=== PATIENT | female | born 1955 | race Hispanic/Latino ===

== ENCOUNTER → 2018-06-12 | Outpatient (CLI) | payer OTHER ==
--- NOTE | 2018-06-12 12:45 | Diagnostic Imaging Report ---
EXAM: US ABDOMEN COMPLETE DATE: 06/12/2018 7:40 AM INDICATION: Area of palpable concern in RLQ COMPARISON: None TECHNIQUE: Transverse and longitudinal blanco scale and color doppler sonographic images of the upper abdomen were obtained. FINDINGS: There is no evidence of fluid or masses seen in the area of clinical concern in the right lower quadrant. LIVER 13.7 cm in the right midclavicular line. Mildly increased echogenicity of the liver, normal contour, no masses. SPLEEN 8 cm in maximum diameter. Normal echogenicity, no masses. GALLBLADDER Status post cholecystectomy. BILE DUCTS No intra nor extra-hepatic biliary dilation. Common bile duct measures 0.3 cm PANCREAS: Visualized portions are normal. RIGHT KIDNEY: 9.5 cm Echogenicity: Normal Collecting System: No hydronephrosis Stones: None Cyst/Mass: None LEFT KIDNEY: 9.6 cm Echogenicity: Normal Collecting System: No hydronephrosis Stones: None Cyst/Mass: None VESSELS: Aorta: Visualized portions are within normal size limits Inferior Vena Cava: Visualized portions are normal Main Portal Vein: 1.2 cm, normal size with hepatopetal flow. FREE FLUID: None IMPRESSION: No sonographic abnormality in the area of clinical concern in the right lower quadrant abdomen. Mildly increased echogenicity of the liver could reflect fatty liver. Signed by: Dr. Kathrine Lazar MD on 06/12/2018 12:42 PM
== END ==
LOC: US 07:21
PROVIDERS: ATTEND Obstetrics & Gynecology
DX: R10.31 Right lower quadrant pain (principal); R10.11 Right upper quadrant pain; E66.9 Obesity, unspecified
CPT/HCPCS: 76700; 77067